=== PATIENT | male | born 1990 | race Caucasian/White ===

== ENCOUNTER 2019-11-17 08:05 | Emergency (ER) | payer SELFPAY ==
[~2019-11-17] VITALS: Ht 172.7 cm; Wt 72.6 kg
--- NOTE | 2019-11-17 08:13 | NUR ---
blood to lab, in triage to eval pt
[2019-11-17] MEDS ORDERED: SODIUM CHLORIDE 0.9% 1000ML 1,000 ML IV SCH (08:15)
[2019-11-17] MEDS ORDERED: HALOPERIDOL LACTATE 5 MG/ML VIAL IV ONE (08:15)
--- NOTE | 2019-11-17 08:23 | Emergency Department Note ---
History of Present Illnes History of Present Illness Chief Complaint: Abdominal Complaints History of Present Illness This is a 29 year old male Chief Complaint Comment PATIENT IN FROM HOME WITH COMPLAINTS OF ABDOMINAL PAIN, NAUSEA, AND VOMITING SINCE SATURDAY - STATES WAS SEEN AT [facility] 11/16/2019 AND DIAGNOSED WITH CANNIBINOID HYPEREMESIS SYNDROME. PATIENT DID NOT GET HIS PRESCRIPTIONS FILLED. PATIENT IN WITH THE SAME COMPLAINTS TODAY. RATES PAIN 09/20. Historian: Patient Arrival Mode: Car Chess Instructor Required: No Onset (how long ago): day(s) (3) Location: Abdomen Quality: Nausea, abdominal pain Radiation: Reports non-radiation Severity: moderate Onset quality: gradual Duration (how long): day(s) (3) Timing of current episode: constant Progression: unchanged Chronicity: new Context: Denies recent illness, Denies recent surgery Relieving factors: none Exacerbating factors: none Associated symptoms: Reports denies other symptoms Treatments prior to arrival: none Past Medical/Family History Physician Review I have reviewed the patient's past medical and family history. Any updates have been documented here. Past Medical History Recent Fever: No Clinical Suspicion of Infectio: No New/Unexplained Change in Ment: No Past Medical History: None Past Surgical History: Hernia Repair Social History Smoking Cessation: Current every day smoker Counseling Performed: No Alcohol Use: None Any Illegal Drug Use: No Physically hurt or threatened: No Other Any Pre-Existing Lines (PICC,: No Review of Systems Review of Systems Constitutional: Reports as per HPI EENTM: Reports no symptoms Cardiovascular: Reports no symptoms Respiratory: Reports no symptoms Gastrointestinal: Reports as per HPI, Reports abdominal pain, Reports nausea, Reports vomiting Genitourinary: Reports no symptoms Musculoskeletal: Reports no symptoms Integumentary: Reports no symptoms Neurological: Reports no symptoms Psychological: Reports no symptoms Endocrine: Reports no symptoms Hematological/Lymphatic: Reports no symptoms Physical Exam Related Data Allergies: Coded Allergies: No Known Allergies (Unverified , 11/17/19) Triage Vital Signs Vital Signs Date Time Temp Pulse Resp B/P (MAP) Pulse Ox O2 Delivery O2 Flow Rate FiO2 11/17/19 08:06 98.1 79 18 132/90 97 Room Air Vital signs reviewed: Yes Physical Exam CONSTITUTIONAL Constitutional: Present well-developed, Present well-nourished HENT HENT: Present normocephalic, Present atraumatic, Present oropharynx clear/moist, Present nose normal HENT L/R: Present left ext ear normal, Present right ext ear normal EYES Eyes: Reports PERRL, Reports conjunctivae normal NECK Neck: Present ROM normal PULMONARY Pulmonary: Present effort normal, Present breath sounds normal CARDIOVASCULAR Cardiovascular: Present regular rhythm, Present heart sounds normal, Present capillary refill normal, Present normal rate GASTROINTESTINAL Abdominal: Present soft, Present nontender, Present bowel sounds normal; Absent tender GENITOURINARY Genitourinary: Present exam deferred SKIN Skin: Present warm, Present dry MUSCULOSKELETAL Musculoskeletal: Present ROM normal NEUROLOGICAL Neurological: Present alert, Present oriented x 3, Present no gross motor or sensory deficits PSYCHOLOGICAL Psychological: Present mood/affect normal, Present judgement normal Results Laboratory Laboratory Laboratory Tests Test 11/17/19 08:08 Lab results reviewed: Yes Assessment & Plan Medical Decision Making MDM 29-year-old male with no significant past medical history presents to the emergency department for abdominal pain, nausea, vomiting. He states he was seen in another hospital recently and had a full workup including CT scan, ultrasound and labs which all came back unremarkable. He was discharged home with Reglan and Bentyl but has not been able to fill these. He was diagnoses with THC hyperemesis. Examination shows an overall well-appearing male in no acute distress, vital signs stable, within acceptable limits. Laboratory workup is largely unremarkable. He was given Haldol, benadryl, and Reglan 10mg which largely relieved his symptoms. He has Rx for reglan already and instructed him to take this. GI consult placed and patient is appropriate for DC. Reassessment Reassessment time: 10:24 Reassessment Resting comfortably Assessment & Plan Final Impression: (1) Abdominal pain Depart Disposition: HOME, SELF-CARE Last Vital Signs Date Time Temp Pulse Resp B/P (MAP) Pulse Ox O2 Delivery O2 Flow Rate FiO2 11/17/19 08:06 98.1 79 18 132/90 97 Room Air Medications in the ED Sodium Chloride 1,000 ml @ 100 mls/hr Q10H IV ; Start 11/17/19 at 08:15; Stop 12/17/19 at 08:14 Haloperidol Lactate 2 mg ONCE ONCE IV ; Start 11/17/19 at 08:15; Stop 11/17/19 at 08:18; Status DC FAWN WRIGHT MD Nov 17, 2019 08:23
[2019-11-17 08:26] LABS: BASOPHILS % 0.2 % (0.0-1.0); EOSINOPHILS % 0.1 % (0.0-6.0); HEMATOCRIT 44.8 % (38.2-49.6); HEMOGLOBIN 15.3 g/dL (14.0-18.0); LYMPHOCYTES # (AUTO) 1.9 (1.0-3.2); MEAN CORPUSCULAR HEMOGLOBIN 29.7 pg (28-32); MEAN CORPUSCULAR HGB CONC 34.2 g/dL (31-35); MEAN CORPUSCULAR VOLUME 86.8 fL (81-99); MONOCYTES % 7.5 % (4.4-11.3); NEUTROPHILS # (AUTO) 10.6 (2.1-6.9); NEUTROPHILS % 77.8 % (38.7-80.0); PLATELET COUNT 309 x10e3/uL (140-360); RED BLOOD COUNT 5.16 x10e6/uL (4.3-5.7); RED CELL DISTRIBUTION WIDTH 12.5 % (11.7-14.4)
[2019-11-17 08:49] LABS: ALANINE AMINOTRANSFERASE 19 IU/L (0-55); ALBUMIN 4.7 g/dL (3.5-5.0); ALBUMIN/GLOBULIN RATIO 1.7 (0.8-2.0); ALKALINE PHOSPHATASE 47 IU/L (40-150); ANION GAP 14.4 mmol/L (8-16); BLOOD UREA NITROGEN 10 mg/dL (7-26); BUN/CREATININE RATIO 10 (6-25); CALCIUM 9.5 mg/dL (8.4-10.2); CARBON DIOXIDE 24 mmol/L (22-29); CHLORIDE 104 mmol/L (98-107); CREATININE, SERUM 0.97 mg/dL (0.72-1.25); EST GLOMERULAR FILTRATION RATE > 60 ML/MIN (60-); GLUCOSE 119 mg/dL (74-118); POTASSIUM 3.4 mmol/L (3.5-5.1); SODIUM 139 mmol/L (136-145)
--- OUTSIDE RECORDS SUMMARY | 2019-11-17 09:03 | XMS REPORT | Continuity of Care Document ---
Author Author [facility] Organization [facility] Address [address] [place] [address] Phone Unavailable Care Team Providers Care Hydraulic Mechanic Name Role Phone Unavailable Unavailable Payers Payer Name Policy Type Policy Number Effective Date Expiration Date S ource Problems This patient has no known problems. Allergies, Adverse Reactions, Alerts Allergy Name Allergy Type Status Severity Reaction(s) Onset Date Inacti ve Date Treating Clinician Comments Source Penicillins DA Active AL 2019-11-15 00:00:00 [facility] Penicillins DA Active AL 2017-07-29 00:00:00 [facility] Medications This patient has no known medications. Procedures This patient has no known procedures. Results Test Description Test Time Test Comments Results Result Comments Source DRUGS OF ABUSE SCREEN UR 2019-11-16 02:36:00 Test Item UA PH DIPSTICK (test code = ANTONIETA) 8.0 5.0-8.0 URN COCAINE (test code = COCAURN) NEGATIVE <300 ng/mL URN CANNABINOIDS (test code = CANNABURN) POSITIVE <50 ng/mL A This test provides only a preliminary test result. A morespecific alternate chemical method must be used in order toobtain a confirmed analytical result. Gas chromatography/mass spectrometry (GC/MS) is thepreferred confirmatory method. Other chemical confirmationmethods are available. Clinical consideration and professional judgment should be applied to any drug of abusetest result, particularly when preliminary positive resultsare used.Unconfirmed screening results must not be used fornon-medical purposes (e.g., employment testing, legaltesting). URN AMPHETAMINE (test code = AMPHETURN) NEGATIVE <1000 ng/mL URN BARBITURATE (test code = BARBITURN) NEGATIVE <200 ng/mL URN BENZODIAZEPINE (test code = BENZOURN) NEGATIVE <200 ng/mL URN OPIATES (test code = OPIATURN) POSITIVE <300 ng/mL A This test provides only a preliminary test result. A morespecific alternate chemical method must be used in order toobtain a confirmed analytical result. Gas chromatography/mass spectrometry (GC/MS) is thepreferred confirmatory method. Other chemical confirmationmethods are available. Clinical consideration and professional judgment should be applied to any drug of abusetest result, particularly when preliminary positive resultsare used.Unconfirmed screening results must not be used fornon-medical purposes (e.g., employment testing, legaltesting). URN PHENCYCLIDINE (PCP) (test code = PHENCURN) NEGATIVE <25 ng/ mL URN METHADONE (test code = METHAURN) NEGATIVE <300 ng/mL URINALYSIS [id number] 02:06:00* Test Item Value Reference Range Interpretation Comments UA COLOR (test code = COLU) YELLOW YELLOW UA APPEARANCE (test code = APPU) TURBID CLEAR A UA GLUCOSE DIPSTICK (test code = DGLUU) NEGATIVE mg/dL NEGATIVE UA BILIRUBIN DIPSTICK (test code = BILU) NEGATIVE mg/dL NEGATIVE UA KETONE DIPSTICK (test code = KETU) 60 (2+) mg/dL NEGATIVE A UA SPECIFIC GRAVITY (test code = SGU) 1.020 1.001-1.035 UA BLOOD DIPSTICK (test code = ARIAS) Negative mg/dL NEGATIVE UA PH DIPSTICK (test code = ANTONIETA) 8.0 5.0-8.0 UA PROTEIN DIPSTICK (test code = PROU) NEGATIVE mg/dL NEGATIVE UA UROBILINIOGEN DIPSTICK (test code = URO) Normal mg/dL NEGATIVE UA NITRITE DIPSTICK (test code = CAMRYN) NEGATIVE NEGATIVE UA LEUKOCYTE ESTERASE W REFLEX (test code = LEUUR) NEGATIVE Latoya/uL NEGATIVE UA WBC (test code = WBCU) 6-10 per HPF 0-5 A UA RBC (test code = RBCU) 0-2 #/HPF 0-5 UA EPITHELIAL CELLS (test code = EPIU) None seen per HPF FEW UA BACTERIA (test code = BACU) FEW #/HPF NONE A UA AMORPHOUS SEDIMENT (test code = AMORU) FEW #/LPF Urine Source? Clean CatchDRUGS OF ABUSE SCREEN [id number] 02:06:00* Test Item Value Reference Range Interpretation Comments UA PH DIPSTICK (test code = ANTONIETA) 8.0 5.0-8.0 URN COCAINE (test code = COCAURN) <300 ng/mL URN CANNABINOIDS (test code = CANNABURN) <50 ng/mL URN AMPHETAMINE (test code = AMPHETURN) <1000 ng/mL URN BARBITURATE (test code = BARBITURN) <200 ng/mL URN BENZODIAZEPINE (test code = BENZOURN) <200 ng/mL URN OPIATES (test code = OPIATURN) <300 ng/mL URN PHENCYCLIDINE (PCP) (test code = PHENCURN) <25 ng/ mL URN METHADONE (test code = METHAURN) <300 ng/mL URINALYSIS [id number] 02:04:00* Test Item Value Reference Range Interpretation Comments UA COLOR (test code = COLU) YELLOW YELLOW UA APPEARANCE (test code = APPU) TURBID CLEAR A UA GLUCOSE DIPSTICK (test code = DGLUU) NEGATIVE mg/dL NEGATIVE UA BILIRUBIN DIPSTICK (test code = BILU) NEGATIVE mg/dL NEGATIVE UA KETONE DIPSTICK (test code = KETU) 60 (2+) mg/dL NEGATIVE A UA SPECIFIC GRAVITY (test code = SGU) 1.020 1.001-1.035 UA BLOOD DIPSTICK (test code = ARIAS) Negative mg/dL NEGATIVE UA PH DIPSTICK (test code = ANTONIETA) 8.0 5.0-8.0 UA PROTEIN DIPSTICK (test code = PROU) NEGATIVE mg/dL NEGATIVE UA UROBILINIOGEN DIPSTICK (test code = URO) Normal mg/dL NEGATIVE UA NITRITE DIPSTICK (test code = CAMRYN) NEGATIVE NEGATIVE UA LEUKOCYTE ESTERASE W REFLEX (test code = LEUUR) NEGATIVE Latoya/uL NEGATIVE UA WBC (test code = WBCU) per HPF 0-5 UA RBC (test code = RBCU) per HPF 0-5 UA EPITHELIAL CELLS (test code = EPIU) per HPF Few UA BACTERIA (test code = BACU) per HPF NONE Urine Source? Clean Catch- CT ABD PELVIS [id number] 02:00:00 Name: CASTRO SUERO [facility] : 1990 Age/S: 29 / M [address] Unit #: [id number] Loc: [place] [address] Phys: Karla Perry ACTUARIAL ASSOCIATE Acct: [id number] Di s Date: Status: REG ER PHONE #: Exam Date: 11/16/2019 0130 FAX #: [phone] Reason: abdominal pain EXAMS: CPT CODE: [id number] CT ABD PELVIS W/CONT [id number] EXAM: CT ABDOMEN AND PELV IS WITH IV CONTRAST DICTATION LOCATION: H48 HISTORY : Male, 29 years of age with abdominal pain TECHNIQUE: Contrast: Nonionic IV contrast was given. No GI contrast was given. Portal venous phase: Abdomen and pelvis Delayed phase: None Reconstruction s: Coronal and sagittal One or more of the following dose reducti on techniques were used: Automated exposure control; adjustment of the mA and/or kV according to the patient size; and/or use of iterative reconstru ction technique. COMPARISON: Previous right upper quadrant ultraso und performed one hour ago FINDINGS: Statements: Exam quality is acceptable. Lower thorax: Unremarkable. H epatobiliary: The liver is normal without focal lesion. The gallbladder is normal. No biliary dilation. Pancreas: Normal. Sple en: Normal. Adrenals: Normal. Genitourinary: No so lid renal mass, significant cortical thinning, obvious renal stone or hydr onephrosis. Ureters are unremarkable. Urinary bladder is unremarkable. The visualized reproductive organs are unremarkable. Gastrointe stinal: No bowel wall thickening, bowel obstruction or perienteric inflam mation. The appendix is normal. Vascular: No aortic aneurysm or di ssection. IVC is unremarkable. Portal vein is patent. Lympha tics: No enlarged lymph nodes by CT size criteria. PAGE 1 Signed Report (CONTINUED) Name: CASTRO SUERO [facility] : 1990 Age/S: 29 / M [address] Unit #: [id number] Loc: [place] [address] Phys: María Elena Perry ACTUARIAL ASSOCIATE Acct: [id number] Dis Date: Status: REG ER PHONE #: [phone] Exam Date: 06/2019 0130 FAX #: [phone] Reason: abdominal judd n EXAMS: CPT CODE: [id number] CT ABD PELVIS W/CONT [id number] <Continued> Bones/Soft Tissues: No acute osseous findings. No ventral hernias. Peritoneum/Other: No free intraperitoneal air. No free intraperitoneal fluid. IMPRESSION: Unremarkable CT of the abdomen and pelvis. at 0200 Reported and signed by: Mayra Ambriz MD CC: María Elena Perry NP Technologist:YARELIS ISAAC RT CTDI: DLP: Trnscb Date/Time: 11/16/2019 (199) t.[email or web address] Orig Print D/T: S: 11/16/2019 (202) PAGE 2 Signed Report CBC W/O [id number] 01:11:00* Test Item Value Reference Range Interpretation Comments WHITE BLOOD CELL (test code = WBC) 13.6 K/mm3 4.5-12.5 H RED BLOOD CELL (test code = RBC) 5.35 mill/mm3 4.0-5.8 N HEMOGLOBIN (test code = HGB) 16.0 gram/dL 13.0-17.5 N HEMATOCRIT (test code = HCT) 47.2 % 42.0-52.0 N MEAN CELL VOLUME (test code = MCV) 88.2 fL 80-98 N MEAN CELL HGB (test code = MCH) 29.9 picogram 27.0-33.0 N MEAN CELL HGB CONCETRATION (test code = MCHC) 33.9 gram/dL 33.0-36. 0 N RED CELL DISTRIBUTION WIDTH (test code = RDW) 12.6 % 11.6-16. 2 N PLATELET COUNT (test code = PLT) 274 K/mm3 150-450 N MEAN PLATELET VOLUME (test code = MPV) 10.2 fL 6.7-11.0 N BASIC METABOLIC [id number] 00:46:00* Test Item Value Reference Range Interpretation Comments SODIUM (test code = NA) 139 mmol/L 136-145 N POTASSIUM (test code = K) 3.5 mmol/L 3.5-5.1 N CHLORIDE (test code = CL) 104.0 mmol/L 98-107 N CARBON DIOXIDE (test code = CO2) 26.0 mmol/L 21-32 N ANION GAP (test code = GAP) 12.5 10-20 N GLUCOSE (test code = GLU) 111 mg/dL 74-106 H BLOOD UREA NITROGEN (test code = BUN) 11 mg/dL 7-18 N GLOMERULAR FILTRATION RATE (test code = GFR) > 60 mL/min >=60 Estimated GFR by using Modified MDRD formula.Chronic kidney disease is defined as either kidney damageor GFR <60 mL/min/1.73 m2 for >3 months. CREATININE (test code = CREAT) 0.90 mg/dL 0.7-1.3 N BUN/CREATININE RATIO (test code = BUN/CREA) 12.6 10-20 N CALCIUM (test code = CA) 9.4 mg/dL 8.5-10.1 N HEPATIC FUNCTION [id number] 00:46:00* Test Item Value Reference Range Interpretation Comments TOTAL PROTEIN (test code = PROT) 7.8 gram/dL 6.4-8.2 N ALBUMIN (test code = ALB) 4.5 g/dL 3.4-5.0 N GLOBULIN (test code = GLOB) 3.3 gram/dL 2.7-4.2 N ALBUMIN/GLOBULIN RATIO (test code = A/G) 1.4 0.75-1.50 N BILIRUBIN TOTAL (test code = BILT) 0.50 mg/dL 0.0-1.0 N BILIRUBIN DIRECT (test code = BILD) 0.12 mg/dL 0.0-0.20 N SGOT/AST (test code = AST) 19 IUnit/L 15-37 N SGPT/ALT (test code = ALT) 29 IUnit/L 12-78 N ALKALINE PHOSPHATASE TOTAL (test code = ALKP) 55 IUnit/L 45-117 N Note change in reference range due to change in reagent. [id number] 00:46:00* Test Item Value Reference Range Interpretation Comments LIPASE (test code = LIP) 91 U/L 73.0-393.0 N [id number] 00:46:00* Test Item Value Reference Range Interpretation Comments TROPONIN-I (test code = TROPI) <0.015 ng/mL 0-0.045 N - US ABDOMEN [id number] 00:42:00 Name: CASTRO SUERO [facility] : 1990 Age/S: 29 / M [address] Unit #: [id number] Loc: [place] [address] Phys: María Elena Perry ACTUARIAL ASSOCIATE Acct: [id number] Dis Date: Status: REG ER PHONE #: [phone] Exam Date: 11/16/2019 0029 FAX #: [phone] Reason: Abdominal Pain EXAMS: CPT CODE: [id number] US ABDOMEN LTD [id number] DICTATION LOCATION: H48 HISTORY: Male, 29 years of age with Abdominal Pain EXAM: ULTRASOUND OF THE RIGHT UPPER QUADRANT COMPARISON: None TECHNIQUE: Real-time grayscale 2-D imaging, Doppler spectral analysis, and Doppler color flow imaging were performed with the variable megahertz curved array transducer transabdominally. STATEMENT: Exam quality is acceptable. FINDINGS: PANCREAS: Head and body within normal limits. Tail obscured by bowel gas. GALLBLADDER: No stones, sludge, or wall thickening. There is no pericholecystic fluid. COMMON BILE DUCT: 1.2 mm, normal caliber. LIVER: Normal in echogenicity. No focal mass or enlargement. Portal vein is patent with appropriate hepatopedal flow. RIGHT KIDNEY: Unremarkable. OTHER: There is no ascites. IMPRESSION: Normal ultrasound of right upper quadrant. at 0042 Reported and signed by: Mayra Ambriz MD CC: María Elena Perry NP Technologist: RUTHIE FRAUSTO RT(R),RDMS [facility] [place] Date/Time: 11/16/2019 (41) [email or web address] CrCLW Orig Print D/T: S: 11/16/2019 (0045) Probe: PAGE 1 Signed Report BASIC METABOLIC [id number] 00:33:00* Test Item Value Reference Range Interpretation Comments SODIUM (test code = NA) 139 mmol/L 136-145 N POTASSIUM (test code = K) 3.5 mmol/L 3.5-5.1 N CHLORIDE (test code = CL) 104.0 mmol/L 98-107 N CARBON DIOXIDE (test code = CO2) mmol/L 21-32 ANION GAP (test code = GAP) 10-20 GLUCOSE (test code = GLU) mg/dL 74-106 BLOOD UREA NITROGEN (test code = BUN) mg/dL 7-18 GLOMERULAR FILTRATION RATE (test code = GFR) mL/min >=60 CREATININE (test code = CREAT) mg/dL 0.7-1.3 BUN/CREATININE RATIO (test code = BUN/CREA) 10-20 CALCIUM (test code = CA) mg/dL 8.5-10.1 HEPATIC FUNCTION [id number] 00:33:00* Test Item Value Reference Range Interpretation Comments TOTAL PROTEIN (test code = PROT) gram/dL 6.4-8.2 ALBUMIN (test code = ALB) g/dL 3.4-5.0 GLOBULIN (test code = GLOB) gram/dL 2.7-4.2 ALBUMIN/GLOBULIN RATIO (test code = A/G) 0.75-1.50 BILIRUBIN TOTAL (test code = BILT) mg/dL 0.0-1.0 BILIRUBIN DIRECT (test code = BILD) mg/dL 0.0-0.20 SGOT/AST (test code = AST) IUnit/L 15-37 SGPT/ALT (test code = ALT) IUnit/L 12-78 ALKALINE PHOSPHATASE TOTAL (test code = ALKP) IUnit/L 45-117 [id number] 00:33:00* Test Item Value Reference Range Interpretation Comments LIPASE (test code = LIP) U/L 73.0-393.0 [id number] 00:33:00* Test Item Value Reference Range Interpretation Comments TROPONIN-I (test code = TROPI) ng/mL 0-0.045 - XR CHEST 1 [id number] 00:12:00 FAX: María Elena Perry NP [place]: B St: REG Name: CASTRO BECKFORD [facility] : [birth year] Age/S: 29/M [address] Unit #: [id number] Loc: [place] [address] Phys: María Elena Perry NP Acct: [id number] Dis Date: Status: REG ER PHONE #: [phone] Exam Date: 11/15/2019 2342 FAX #: [phone] Reason: ABDOMINAL PAIN EXAMS: CPT CODE: [id number] XR CHEST 1 V [id number] AFTER HOURS SERVICE ON: 11/16/2019 12:12 AM AP Portable Chest Location Code M12 HISTORY: ABDOMINAL PAIN FINDINGS: There are no infiltrates. There are no pleural effusions. There is no pneumothorax. Cardiac silhouette and mediastinum appear within normal limits. IMPRESSION: No active pulmonary findings. at 0012 Reported and si gned by: Luigi Zuluaga M.D. CC: María Elena Perry NP Technologist: Isaac Rush RT(R) Trnscrd Date/Time/By: 11/16/2019 (0012) : By: [email or web address] Orig Print D/T: S: 11/16/2019 (0016) PAGE 1 Signed Report
[2019-11-17 09:13] LABS: BILIRUBIN,URINE NEGATIVE (NEGATIVE); CLARITY,URINE CLEAR (CLEAR); COLOR,URINE YELLOW (YELLOW); KETONES,URINE NEGATIVE (NEGATIVE); LEUKOCYTE ESTERASE ,URINE NEGATIVE (NEGATIVE); NITRITE,URINE NEGATIVE (NEGATIVE); PROTEIN,URINE DIPSTICK NEGATIVE (NEGATIVE); URINE UROBILINOGEN 1 mg/dL (0.2 - 1)
[2019-11-17 09:24] LABS: BACTERIA,URINE MODERATE /HPF; EPITHELIAL CELLS,URINE FEW /LPF; RBC,URINE 0-5 /HPF (0-5); WBC,URINE (MAN) 0-5 /HPF (0-5)
--- NOTE | 2019-11-17 09:32 | NUR ---
Pt states not feeling any better. md notified. no vomiting since arrival. patient states abd discomfort.
[2019-11-17] MEDS ORDERED: DIPHENHYDRAMINE HCL INJ 50 MG/ML VIAL IV STA (09:39)
[2019-11-17] MEDS ORDERED: METOCLOPRAMIDE HCL 10 MG/2ML VIAL IV ONE (09:45)
== END 2019-11-17 10:40 | disposition home or self-care (01) ==
LOC: ER 08:45
DX: R10.11 Right upper quadrant pain (principal); R11.2 Nausea with vomiting, unspecified; F17.210 Nicotine dependence, cigarettes, uncomplicated
CPT/HCPCS: 36415; 80053; 81001; 83690; 85025; 99284; J1630; J2765; J7030